=== PATIENT | female | born 1970 | race Caucasian/White ===

== ENCOUNTER 2024-08-02 07:13 | Emergency (ER) | payer MEDICARE ==
[~2024-08-02] VITALS: Ht 160 cm; Wt 66.8 kg
[2024-08-02] MEDS ORDERED: PRILOSEC2.5 MG/Pac PO (07:31)
[2024-08-02] MEDS ORDERED: VITAMIN D PO (07:32)
[2024-08-02] MEDS ORDERED: VITAMIN B12500 MC2 PO (07:32)
[2024-08-02] MEDS ORDERED: AMOXICILLIN AND1 TA2 PO (07:39)
[2024-08-02] MEDS ORDERED: CENTANY30 GM TP (07:39)
[2024-08-02] MEDS ORDERED: Tdap Vaccine 0.5 ML SYRINGE IM ONE (07:45)
[2024-08-02 08:08] VITALS: BP 117/66
== END 2024-08-02 08:45 | disposition home or self-care (01) ==
LOC: ED 07:13
DX: S61.412A Laceration without foreign body of left hand, initial encounter (principal); F17.200 Nicotine dependence, unspecified, uncomplicated; W26.8XXA Contact with other sharp object(s), not elsewhere classified, initial encounter; Y93.89 Activity, other specified
CPT/HCPCS: 90715